=== PATIENT | female | born 1990 | race Hispanic/Latino ===

== ENCOUNTER 2022-02-04 17:38 | Emergency (ER) | payer OTHER ==
[~2022-02-04] VITALS: Ht 157.5 cm; Wt 70.3 kg
[~2022-02-04 17:38] MED LIST: LEVO500T2 PO
[2022-02-04] MEDS ORDERED: CYCL10TA16 PO (18:52)
[2022-02-04] MEDS ORDERED: NAPR-1180 PO (18:52)
[2022-02-04] MEDS ORDERED: CYCLOBENZAPRINE HCL 10 MG TABLET PO ONE (19:00)
[2022-02-04] MEDS ORDERED: IBUPROFEN 800 MG TAB PO ONE (19:00)
[2022-02-04 19:29] VITALS: BP 132/84
== END 2022-02-04 19:33 | disposition home or self-care (01) ==
LOC: EDH 17:38
DX: M43.6 Torticollis (principal)